=== PATIENT | male | born 1985 | race African-American/Black ===

== ENCOUNTER 2016-07-17 11:00 | Emergency (ER) | payer OTHER ==
[~2016-07-17] VITALS: Ht 172.7 cm; Wt 76.3 kg
[~2016-07-17 11:00] MED LIST: CLINDAMYCIN HC300 MG PO; ECONAZOLE NITRA15 GM TP; LOTRIMIN AF24 GM TP; MOTRIN IB200 MG PO; MOTRIN600 MG PO; NYAMYC60 GM TP; ZANTAC150 MG PO
[2016-07-17] MEDS ORDERED: LOTRISONE15 GM TP (13:50)
[2016-07-17 14:09] VITALS: BP 141/87
== END 2016-07-17 14:12 | disposition home or self-care (01) ==
LOC: RME 11:00 → EME 11:00 → RME 14:12
DX: B35.6 Tinea cruris (principal)
CPT/HCPCS: 99281; 99283

== ENCOUNTER 2016-07-20 12:19 | Emergency (ER) | payer OTHER ==
[~2016-07-20] VITALS: Ht 172.7 cm; Wt 77.0 kg
[~2016-07-20 12:19] MED LIST changes: +LOTRISONE15 GM TP
[2016-07-20] MEDS ORDERED: LOTRISONE15 GM TP (13:54)
[2016-07-20 14:22] VITALS: BP 140/74
== END 2016-07-20 14:23 | disposition home or self-care (01) ==
LOC: EME 12:19
DX: B35.6 Tinea cruris (principal); R59.0 Localized enlarged lymph nodes
CPT/HCPCS: 99281; 99284

== ENCOUNTER 2016-09-02 02:31 | Emergency (ER) | payer OTHER ==
[~2016-09-02] VITALS: Ht 172.7 cm; Wt 75.0 kg
[2016-09-02 03:15] VITALS: BP 133/92
[2016-09-02] MEDS ORDERED: BACTROBAN OINTM22 GM TP (13:49)
== END 2016-09-02 04:13 | disposition home or self-care (01) ==
LOC: EME 02:31
DX: N48.89 Other specified disorders of penis (principal)
CPT/HCPCS: 99281; 99283

== ENCOUNTER 2016-09-02 13:11 | Emergency (ER) | payer OTHER ==
[~2016-09-02] VITALS: Ht 172.7 cm; Wt 76.7 kg
[2016-09-02] MEDS ORDERED: BACTROBAN OINTM22 GM TP (13:49)
[2016-09-02 14:04] VITALS: BP 143/83
== END 2016-09-02 14:29 | disposition home or self-care (01) ==
LOC: EME 13:11
DX: N48.89 Other specified disorders of penis (principal)
CPT/HCPCS: 86780; 99281; 99283

== ENCOUNTER 2016-09-04 09:38 | Emergency (ER) | payer OTHER ==
[~2016-09-04 09:38] MED LIST changes: +BACTROBAN OINTM22 GM TP
== END 2016-09-04 09:55 | disposition left against medical advice (07) ==
LOC: EME 09:38
DX: R10.30 Lower abdominal pain, unspecified (principal); Z53.21 Procedure and treatment not carried out due to patient leaving prior to being seen by health care provider

== ENCOUNTER 2016-11-28 14:38 | Emergency (ER) | payer OTHER ==
[~2016-11-28] VITALS: Ht 172.7 cm; Wt 77.7 kg
[2016-11-28 17:22] LABS: BASOPHIL COUNT 0.1 K/uL (0-0.1); EOSINOPHIL (%) 0.7 % (0-5); EOSINOPHIL COUNT 0.1 K/uL (0-0.3); HEMATOCRIT 44.2 % (38.0-50.0); IMMATURE GRANULOCYTE (%) 0.3 % (0.0-0.7); INSTRUMENT ABS NEUTROPHIL CT 4.1 K/uL; LYMPHOCYTE COUNT 2.4 K/uL (1.0-2.8); MCH 29.4 PG (29.0-34.0); MCHC 33.5 G/DL (30.0-36.0); MCV 87.7 FL (86-99); MEAN PLAT.VOLUME 8.8 uM^3 (9.0-12.4); MONOCYTE (%) 6.9 % (3-12); MONOCYTE COUNT 0.5 K/uL (0-0.8); NEUTROPHIL (%) 57.8 % (45-76); NEUTROPHIL COUNT 4.1 K/uL (1.8-6.4); PLATELET COUNT 290 K/uL (156-360); RBC DIS.WIDTH-CV 12.4 % (11.8-14.6); RBC DIS.WIDTH-SD 40.1 % (39-53); RED BLOOD COUNT 5.04 M/uL (4.00-5.50); WHITE BLOOD COUNT 7.1 K/uL (4.1-10.2)
[2016-11-28 17:32] LABS: CHLORIDE 104 mEq/L (99-109); POTASSIUM 3.6 mEq/L (3.7-5.4); SODIUM 139 mEq/L (136-147)
[2016-11-28 17:33] LABS: GLUCOSE 87 mg/dL (70-99)
[2016-11-28 17:35] LABS: ANION GAP 11 MEQ/L (2-14)
[2016-11-28 17:37] LABS: GFR ESTIMATE (CALCULATED) > 59 mL/min/
[2016-11-28 17:38] LABS: UREA NITROGEN (BUN) 12 mg/dL (9-23)
[2016-11-28 17:43] LABS: TROP-I INTERPRETATION NEGATIVE; TROPONIN-I < 0.01 ng/mL (0.0-0.30)
[2016-11-28] MEDS ORDERED: CARAFATE1 GM PO (18:13)
[2016-11-28 18:31] VITALS: BP 155/79
== END 2016-11-28 18:32 | disposition home or self-care (01) ==
LOC: EME 14:38
PROVIDERS: Emergency Medicine
DX: R07.89 Other chest pain (principal); Z87.891 Personal history of nicotine dependence
CPT/HCPCS: 71020; 80048; 84484; 85025; 93005; 99281; 99285

== ENCOUNTER 2017-10-02 17:32 | Emergency (ER) | payer OTHER ==
[~2017-10-02] VITALS: Ht 172.7 cm; Wt 84.3 kg
[~2017-10-02 17:32] MED LIST changes: +CARAFATE1 GM PO
[2017-10-02] MEDS ORDERED: BENTYL20 MG PO (17:59)
[2017-10-02 19:04] VITALS: BP 127/86
== END 2017-10-02 19:05 | disposition home or self-care (01) ==
LOC: EME 17:32
DX: R10.9 Unspecified abdominal pain (principal); Z87.891 Personal history of nicotine dependence
CPT/HCPCS: 99281; 99284